=== PATIENT | male | born 1990 | race Caucasian/White ===

== ENCOUNTER 2019-10-11 15:44 | Emergency (ER) | payer BC ==
[2019-10-11 15:49] VITALS: BP 161/88; PULSE 117; RESP 20; TEMP 98.3
[2019-10-11] MEDS ORDERED: DIPH,PERTUS(ACELL)TETVAC-LF 0.5 ML VIAL IM ONE (16:01)
[2019-10-11] MEDS ORDERED: AMOXIC-POT CLAV 875MG STARTER PACK 2 TAB BTL PO STA (16:01)
[2019-10-11] MEDS ORDERED: GELATIN SPONGE,ABSORB (SMALL) 1 EACH SPONGE TOPICAL STA (16:01)
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
--- NOTE | 2019-10-11 16:30 | XR ---
EXAMINATION TYPE: XR finger LT DATE OF EXAM: 10/11/2019 COMPARISON: NONE HISTORY: Thumb pain TECHNIQUE: 3 views FINDINGS: I see no fracture nor dislocation. There is soft tissue deformity on the anterior surface o f the tip of the thumb consistent with laceration. IMPRESSION: Soft tissue deformity. No foreign body seen. No fracture.
== END 2019-10-11 16:42 | disposition home or self-care (01) ==
LOC: EC 15:44
DX: S61.052A Open bite of left thumb without damage to nail, initial encounter (principal); S00.12XA Contusion of left eyelid and periocular area, initial encounter; Z23 Encounter for immunization; F17.200 Nicotine dependence, unspecified, uncomplicated; Y04.1XXA Assault by human bite, initial encounter
CPT/HCPCS: 90471; 90715; 99284

== ENCOUNTER → 2022-11-09 | Outpatient (CLI) | payer BC ==
--- NOTE | 2022-11-09 23:28 | US ---
EXAMINATION TYPE: US axilla LT DATE OF EXAM: 11/09/2022 COMPARISON: CLINICAL HISTORY: R59.0 enlarged lymph nodes. Patient states having palpable area in left axilla. Si ze changes but has been better since antibiotics per patient. No visible abnormality. TECHNIQUE: FINDINGS: Multiple images of patients left axilla palpable area of concern taken. Superficial nonva scular complex lesion seen = 0.7 x 0.8 x 0.4 cm. IMPRESSION: No pathologic adenopathy seen.
--- NOTE | 2022-11-09 23:29 | US ---
EXAMINATION TYPE: US axilla RT DATE OF EXAM: 11/09/2022 COMPARISON: CLINICAL HISTORY: R59.0 enlarged lymph nodes. Patient states having palpable area in right axilla. S ize changes but has been better since antibiotics per patient. No visible abnormality. TECHNIQUE: FINDINGS: Multiple images of patients right axilla palpable area of concern taken. Superficial nonv ascular complex lesion seen = 0.8 x 0.8 x 0.3 cm. IMPRESSION: No pathologic adenopathy seen.
== END | disposition home or self-care (01) ==
LOC: RADUSWWP 16:05
PROVIDERS: ATTEND Family Medicine
DX: R59.0 Localized enlarged lymph nodes (principal)

== ENCOUNTER 2024-10-22 13:32 | Emergency (ER) | payer BC ==
[2024-10-22 13:38] VITALS: TEMP 97.8
[2024-10-22] MEDS: ONDANSETRON 4 MG/2 ML VIAL IVP STA (14:15)
[2024-10-22] MEDS: LABETALOL 5 MG/ML VIAL MDV IVP STA (14:15)
[2024-10-22] MEDS: SODIUM CHLORIDE 0.9% 1,000 ML IV ONE ×2 (14:15→16:23)
--- NOTE | 2024-10-22 14:17 | ED ---
Arrhythmia/Palpitations HPI - General Chief Complaint: Arrhythmia/Palpitations Stated Complaint: abn labs Source: patient Mode of arrival: ambulatory Limitations: no limitations - History of Present Illness Initial Comments: Patient is a 34-year-old male with no past medical history presents to the ER with palpitations, arrhythmia started this morning. While on his way to work this morning, patient started feeling palpitations, lightheaded and dizzy. Patient went to his primary care physician and his PCP ordered an EKG and became concerned for arrhythmia and sent patient to the ER for evaluation. Patient also had nausea and vomited several times this morning. He also noticed that his left eye vision became blurry this morning and seeing floaters. He recently recovered from a viral illness about a week ago. Patient denies any chest pain, shortness of breath. No fever, chills, belly pain, diarrhea or constipation, lower extremity calf tenderness. Patient is a chronic smoker and smokes about half a pack a day for 18 years. Last time he drank alcohol was Saturday. He uses marijuana occasionally. - Related Data Home Medications Medication Instructions Recorded Confirmed L.acidoph,Paracasei, B.lactis 1 cap PO DAILY 10/22/24 10/22/24 [Probiotic] Multivit,Calc,Min/FA/K1/Lycop 1 tab PO DAILY 10/22/24 10/22/24 [One-A-Day Men's Complete Tab] Previous Rx's Medication Instructions Recorded amLODIPine [Norvasc] 5 mg PO DAILY 7 Days #7 tab 10/22/24 lisinopriL [Prinivil] 10 mg PO DAILY 7 Days #7 tab 10/22/24 Allergies Allergy/AdvReac Type Severity Reaction Status Date / Time No Known Allergies Allergy Verified 10/22/24 16:11 Review of Systems ROS Statement: Those systems with pertinent positive or pertinent negative responses have been documented in the HPI. ROS Other: All systems not noted in ROS Statement are negative. Constitutional: Denies: fever, chills Eyes: Reports: vision change ENT: Denies: ear pain, throat pain, congestion Respiratory: Denies: cough, dyspnea Cardiovascular: Reports: palpitations. Denies: chest pain, dyspnea on exertion, orthopnea Gastrointestinal: Reports: nausea, vomiting, diarrhea. Denies: abdominal pain, constipation Past Medical History Past Medical History: No Reported History History of Any Multi-Drug Resistant Organisms: None Reported Past Surgical History: No Surgical Hx Reported Past Psychological History: No Psychological Hx Reported Smoking Status: Current every day smoker Past Alcohol Use History: Occasional Past Drug Use History: None Reported General Exam - General Exam Comments Initial Comments: GENERAL: This is a 34-year-old in no apparent distress at the time of examination. HEENT: PERRLA. Scleral anicteric. RESPIRATORY: Clear to auscultation bilaterally. No wheezing, rales, crackles, rhonchi, stridor. CARDIOVASCULAR: Regular rate and rhythm. S1 and S2 noted. No systolic or diast olic murmur auscultated. No JVD noted. No S3 or S4 noted. GASTROINTESTINAL: No abdominal distention. Abdomen is soft and nontender to palpation. INTEGUMENTARY: No cyanosis. No jaundice. No rashes noted. No cellulitis noted. EXTREMITIES: No calf tenderness noted. NEUROLOGIC: Cranial nerves II-XII intact. PSYCHIATRIC: Awake, alert, and oriented X 3. Appropriate affect. Intact judgement and insight. Limitations: no limitations Course Vital Signs 10/22/24 10/22/24 10/22/24 13:34 13:55 15:06 Temperature 97.8 F Pulse Rate 118 H 115 H 89 Respiratory 19 20 16 Rate Blood Pressure 221/135 208/131 172/110 O2 Sat by Pulse 99 99 99 Oximetry Medical Decision Making - Medical Decision Making Was pt. sent in by a medical professional or institution (DILMA Will, TRANSPORTATION MAINTENANCE SPECIALIST, urgent care, hospital, or prison...) When possible be specific @ -Sent in by PCP Did you speak to anyone other than the patient for history (EMS, parent, family, police, friend...)? What history was obtained from this source @ -No Did you review nursing and triage notes (agree or disagree)? Why? @ -I reviewed and agree with nursing and triage notes Were old charts reviewed (outside hosp., previous admission, EMS record, old EKG, old radiological studies, urgent care reports/EKG's, prison records)? Report findings @ -No old charts were reviewed Differential Diagnosis? @ -Hypertensive emergency, aortic dissection, NSTEMI, ACS, anxiety EKG interpreted by me (3pts min.). @ -Sinus tachycardia with ventricular rate of 110 bpm, QTc interval of 400 ms X-rays interpreted by me (1pt min.). @ -No acute cardiopulmonary disease/process CT interpreted by me (1pt min.). @ -None done U/S interpreted by me (1pt. min.). @ -None done What testing was considered but not performed or refused? (CT, X-rays, U/S, labs)? Why? @ -None What meds were considered but not given or refused? Why? @ -None Did you discuss the management of the patient with other professionals (professionals i.e. DrManoj, PA, TRANSPORTATION MAINTENANCE SPECIALIST, lab, RT, psych nurse, social security specialist, business lawyer, teacher, college service officer, continuous pillowcase cutter)? Give summary @ -Discussed with attending physician Was smoking cessation discussed for >3mins.? @ -No Was critical care preformed (if so, how long)? @ -No Were there social determinants of health that impacted care today? How? (Homelessness, low income, unemployed, alcoholism, drug addiction, transportation, low edu. Level, literacy, decrease access to med. care, assisted, rehab)? @ -No Was there de-escalation of care discussed even if they declined (Discuss DNR or withdrawal of care, Hospice)? DNR status @ -No What co-morbidities impacted this encounter? (DM, HTN, Smoking, COPD, CAD, Cancer, CVA, ARF, Chemo, Hep., AIDS, mental health diagnosis, sleep apnea, morbid obesity)? @ -None Was patient admitted / discharged? Hospital course, mention meds given and route, prescriptions, significant lab abnormalities, going to OR and other pertinent info. @ -Patient is a 34-year-old male with no past medical history presents with palpitations and arrhythmia. CBC shows elevated hemoglobin. D-dimer was negative. Lactic acid and lipid elevated likely as a result of excessive alcohol drinking over the weekend. Patient was given 2 boluses of 1 L fluid in the ED. a one-time IV labetalol was also given in the ED. Upon reevaluation, patient reports feeling much better. Will send patient home with amlodipine and lisinopril. Undiagnosed new problem with uncertain prognosis? @ -No Drug Therapy requiring intensive monitoring for toxicity (Heparin, Nitro, Insulin, Cardizem)? @ -No Were any procedures done? @ -No Diagnosis/symptom? @ -Hypertensive emergency Acute, or Chronic, or Acute on Chronic? @ -Acute Uncomplicated (without systemic symptoms) or Complicated (systemic symptoms)? @ -Uncomplicated Side effects of treatment? @ -No Exacerbation, Progression, or Severe Exacerbation? @ -No Poses a threat to life or bodily function? How? (Chest pain, USA, OR, pneumonia, PE, COPD, DKA, ARF, appy, cholecystitis, CVA, Diverticulitis, Homicidal, Suicidal, threat to staff... and all critical care pts) @ -No - Lab Data Result diagrams: 10/22/24 14:06 10/22/24 14:06 Lab Results 10/22/24 10/22/24 10/22/24 Range/Units 14:06 14:06 14:06 WBC 9.5 (3.8-10.6) k/uL RBC 5.53 (4.30-5.90) m/uL Hgb 17.6 H (13.0-17.5) gm/dL Hct 52.0 (39.0-53.0) % MCV 93.9 (80.0-100.0) fL MCH 31.8 (25.0-35.0) pg MCHC 33.9 (31.0-37.0) g/dL RDW 12.1 (11.5-15.5) % Plt Count 251 (150-450) k/uL MPV 8.4 Neutrophils % 75 % Lymphocytes % 14 % Monocytes % 8 % Eosinophils % 1 % Basophils % 0 % Neutrophils # 7.2 (1.3-7.7) k/uL Lymphocytes # 1.4 (1.0-4.8) k/uL Monocytes # 0.8 (0-1.0) k/uL Eosinophils # 0.1 (0-0.7) k/uL Basophils # 0.0 (0-0.2) k/uL PT 10.7 (10.0-12.5) sec INR 1.0 (<1.2) APTT 24.0 (22.0-30.0) sec D-Dimer <0.17 (<0.60) mg/L FEU Sodium (137-145) mmol/L Potassium (3.5-5.1) mmol/L Chloride (98-107) mmol/L Carbon Dioxide (22-30) mmol/L Anion Gap mmol/L BUN (9-20) mg/dL Creatinine (0.66-1.25) mg/dL Est GFR (CKD-EPI)AfAm (>60 ml/min/1.73 sqM) Est GFR (CKD-EPI)NonAf (>60 ml/min/1.73 sqM) Glucose (74-99) mg/dL Lactic Ac Sepsis Rflx Plasma Lactic Acid Alex (0.7-2.0) mmol/L Calcium (8.4-10.2) mg/dL Phosphorus (2.5-4.5) mg/dL Magnesium (1.6-2.3) mg/dL Total Bilirubin (0.2-1.3) mg/dL AST (17-59) U/L ALT (4-49) U/L Alkaline Phosphatase (38-126) U/L Troponin I (0.000-0.034) ng/mL NT-Pro-B Natriuret Pep pg/mL Total Protein (6.3-8.2) g/dL Albumin (3.5-5.0) g/dL Lipase (23-300) U/L TSH (0.465-4.680) mIU/L Urine Color Colorless Urine Appearance Clear (Clear) Urine pH 7.0 (5.0-8.0) Ur Specific Hamilton 1.009 (1.001-1.035) Urine Protein Negative (Negative) Urine Glucose (UA) Negative (Negative) Urine Ketones Trace H (Negative) Urine Blood Negative (Negative) Urine Nitrite Negative (Negative) Urine Bilirubin Negative (Negative) Urine Urobilinogen <2.0 (<2.0) mg/dL Ur Leukocyte Esterase Negative (Negative) Salicylates mg/dL Acetaminophen ug/mL 10/22/24 10/22/24 10/22/24 Range/Units 14:06 14:06 14:06 WBC (3.8-10.6) k/uL RBC (4.30-5.90) m/uL Hgb (13.0-17.5) gm/dL Hct (39.0-53.0) % MCV (80.0-100.0) fL MCH (25.0-35.0) pg MCHC (31.0-37.0) g/dL RDW (11.5-15.5) % Plt Count (150-450) k/uL MPV Neutrophils % % Lymphocytes % % Monocytes % % Eosinophils % % Basophils % % Neutrophils # (1.3-7.7) k/uL Lymphocytes # (1.0-4.8) k/uL Monocytes # (0-1.0) k/uL Eosinophils # (0-0.7) k/uL Basophils # (0-0.2) k/uL PT (10.0-12.5) sec INR (<1.2) APTT (22.0-30.0) sec D-Dimer (<0.60) mg/L FEU Sodium 132 L (137-145) mmol/L Potassium 4.3 (3.5-5.1) mmol/L Chloride 96 L (98-107) mmol/L Carbon Dioxide 21 L (22-30) mmol/L Anion Gap 15 mmol/L BUN 11 (9-20) mg/dL Creatinine 0.64 L (0.66-1.25) mg/dL Est GFR (CKD-EPI)AfAm >90 (>60 ml/min/1.73 sqM) Est GFR (CKD-EPI)NonAf >90 (>60 ml/min/1.73 sqM) Glucose 158 H (74-99) mg/dL Lactic Ac Sepsis Rflx Plasma Lactic Acid Alex 3.6 H* (0.7-2.0) mmol/L Calcium 9.7 (8.4-10.2) mg/dL Phosphorus 2.9 (2.5-4.5) mg/dL Magnesium 2.2 (1.6-2.3) mg/dL Total Bilirubin 1.7 H (0.2-1.3) mg/dL AST 40 (17-59) U/L ALT 40 (4-49) U/L Alkaline Phosphatase 83 (38-126) U/L Troponin I <0.012 (0.000-0.034) ng/mL NT-Pro-B Natriuret Pep 223 pg/mL Total Protein 7.7 (6.3-8.2) g/dL Albumin 5.3 H (3.5-5.0) g/dL Lipase 449 H (23-300) U/L TSH 2.890 (0.465-4.680) mIU/L Urine Color Urine Appearance (Clear) Urine pH (5.0-8.0) Ur Specific Hamilton (1.001-1.035) Urine Protein (Negative) Urine Glucose (UA) (Negative) Urine Ketones (Negative) Urine Blood (Negative) Urine Nitrite (Negative) Urine Bilirubin (Negative) Urine Urobilinogen (<2.0) mg/dL Ur Leukocyte Esterase (Negative) Salicylates <1.0 mg/dL Acetaminophen <10.0 ug/mL 10/22/24 Range/Units 14:43 WBC (3.8-10.6) k/uL RBC (4.30-5.90) m/uL Hgb (13.0-17.5) gm/dL Hct (39.0-53.0) % MCV (80.0-100.0) fL MCH (25.0-35.0) pg MCHC (31.0-37.0) g/dL RDW (11.5-15.5) % Plt Count (150-450) k/uL MPV Neutrophils % % Lymphocytes % % Monocytes % % Eosinophils % % Basophils % % Neutrophils # (1.3-7.7) k/uL Lymphocytes # (1.0-4.8) k/uL Monocytes # (0-1.0) k/uL Eosinophils # (0-0.7) k/uL Basophils # (0-0.2) k/uL PT (10.0-12.5) sec INR (<1.2) APTT (22.0-30.0) sec D-Dimer (<0.60) mg/L FEU Sodium (137-145) mmol/L Potassium (3.5-5.1) mmol/L Chloride (98-107) mmol/L Carbon Dioxide (22-30) mmol/L Anion Gap mmol/L BUN (9-20) mg/dL Creatinine (0.66-1.25) mg/dL Est GFR (CKD-EPI)AfAm (>60 ml/min/1.73 sqM) Est GFR (CKD-EPI)NonAf (>60 ml/min/1.73 sqM) Glucose (74-99) mg/dL Lactic Ac Sepsis Rflx Y Plasma Lactic Acid Alex (0.7-2.0) mmol/L Calcium (8.4-10.2) mg/dL Phosphorus (2.5-4.5) mg/dL Magnesium (1.6-2.3) mg/dL Total Bilirubin (0.2-1.3) mg/dL AST (17-59) U/L ALT (4-49) U/L Alkaline Phosphatase (38-126) U/L Troponin I (0.000-0.034) ng/mL NT-Pro-B Natriuret Pep pg/mL Total Protein (6.3-8.2) g/dL Albumin (3.5-5.0) g/dL Lipase (23-300) U/L TSH (0.465-4.680) mIU/L Urine Color Urine Appearance (Clear) Urine pH (5.0-8.0) Ur Specific Hamilton (1.001-1.035) Urine Protein (Negative) Urine Glucose (UA) (Negative) Urine Ketones (Negative) Urine Blood (Negative) Urine Nitrite (Negative) Urine Bilirubin (Negative) Urine Urobilinogen (<2.0) mg/dL Ur Leukocyte Esterase (Negative) Salicylates mg/dL Acetaminophen ug/mL Disposition Clinical Impression: Hypertensive emergency Narrative: Patient will be discharged home with amlodipine and lisinopril Disposition: HOME SELF-CARE Condition: Stable Instructions (If sedation given, give patient instructions): Hypertension (ED) Prescriptions: amLODIPine [Norvasc] 5 mg PO DAILY 7 Days #7 tab lisinopriL [Prinivil] 10 mg PO DAILY 7 Days #7 tab Is patient prescribed a controlled substance at d/c from ED?: No Referrals: Dre Nickerson MD [Primary Care Provider] - 1-2 days Time of Disposition: 17:40
[2024-10-22 14:22] LABS: Appearance,Urine Clear (Clear); Bilirubin,Urine Negative (Negative); Blood,Urine Negative (Negative); Color,Urine Colorless; Glucose,Urine (UA) Negative (Negative); Ketones,Urine Trace (Negative); Leukocyte Esterase,Urine Negative (Negative); Nitrite,Urine Negative (Negative); Protein,Urine Negative (Negative); Specific Gravity,Urine 1.009 (1.001-1.035); Urobilinogen,Urine <2.0 mg/dL (<2.0)
[2024-10-22 14:24] LABS: Basophils % (A) 0 %; Eosinophils # (A) 0.1 k/uL (0-0.7); Eosinophils % (A) 1 %; HGB 17.6 gm/dL (13.0-17.5); Lymphocytes # (A) 1.4 k/uL (1.0-4.8); Lymphocytes % (A) 14 %; MCH 31.8 pg (25.0-35.0); MCHC 33.9 g/dL (31.0-37.0); MCV 93.9 fL (80.0-100.0); Mean Platelet Volume 8.4; Monocytes # (A) 0.8 k/uL (0-1.0); Monocytes % (A) 8 %; Neutrophils # (A) 7.2 k/uL (1.3-7.7); Neutrophils % (A) 75 %; Platelet Count 251 k/uL (150-450); RBC 5.53 m/uL (4.30-5.90); RDW 12.1 % (11.5-15.5); WBC 9.5 k/uL (3.8-10.6)
[2024-10-22 14:41] LABS: ALT 40 U/L (4-49); AST 40 U/L (17-59); Acetaminophen <10.0 ug/mL; African American GFR (CKD) >90 (>60 ml/min/1.73 sqM); Albumin 5.3 g/dL (3.5-5.0); Alkaline Phosphatase 83 U/L (38-126); Anion Gap 15 mmol/L; Blood Urea Nitrogen 11 mg/dL (9-20); Calcium 9.7 mg/dL (8.4-10.2); Carbon Dioxide 21 mmol/L (22-30); Chloride 96 mmol/L (98-107); Glucose 158 mg/dL (74-99); Lipase 449 U/L (23-300); Magnesium 2.2 mg/dL (1.6-2.3); Non-African American GFR(CKD) >90 (>60 ml/min/1.73 sqM); Phosphorus 2.9 mg/dL (2.5-4.5); Potassium 4.3 mmol/L (3.5-5.1); Salicylate <1.0 mg/dL; Sodium 132 mmol/L (137-145); Total Bilirubin 1.7 mg/dL (0.2-1.3); Total Protein 7.7 g/dL (6.3-8.2)
[2024-10-22 14:51] LABS: NT-Pro-B-Type Natriuretic Pept 223 pg/mL
[2024-10-22 14:52] LABS: Prothrombin Time 10.7 sec (10.0-12.5)
--- NOTE | 2024-10-22 15:42 | XR ---
EXAMINATION TYPE: XR chest 2V DATE OF EXAM: 10/22/2024 3:35 PM COMPARISON: None CLINICAL INDICATION: Male, 34 years old with history of hypertensive emergency; TECHNIQUE: XR chest 2V Frontal and lateral views of the chest. FINDINGS: Lungs/Pleura: There is no evidence of pleural effusion, focal consolidation, or pneumothorax. Pulmonary vascularity: Unremarkable. Heart/mediastinum: Cardiomediastinal silhouette is unremarkable. Musculoskeletal: No acute osseous pathology. IMPRESSION: No acute cardiopulmonary disease/process. [facility], , 10/22/2024 3:39 PM
[2024-10-22 18:27] VITALS: BP 170/98; PULSE 86; RESP 20
[2024-10-22 19:26] LABS: Amphetamine Screen,Urine Not Detected (NotDetected); Barbiturate Screen,Urine Not Detected (NotDetected); Benzodiazepines Screen,Urine Not Detected (NotDetected); Cocaine Screen,Urine Not Detected (NotDetected); Methadone Screen, Urine Not Detected (NotDetected); Opiate Screen,Urine Not Detected (NotDetected); Oxycodone Screen, Urine Not Detected (NotDetected); Phencyclidine Screen,Urine Not Detected (NotDetected); Tricyclic Antidepressant,Urine Not Detected (NotDetected); Urn Cannabinoid Scrn Detected (NotDetected)
== END 2024-10-22 18:27 | disposition home or self-care (01) ==
LOC: EC 13:32
DX: I16.1 Hypertensive emergency (principal); R00.0 Tachycardia, unspecified; F17.210 Nicotine dependence, cigarettes, uncomplicated; Z79.899 Other long term (current) drug therapy
CPT/HCPCS: 36415; 93005; 85379; 83880; 80053; 83605; 83690; 83735; 84100; 84443; 84484; 85025; 85610; 85730; 81003; 80306; 80143; 80179; 71046; 99285; 96374; 96375; 96361 ×4; J2405; J1920